=== PATIENT | male | born 1990 | race Two or more races ===

== ENCOUNTER 2018-03-23 23:43 | Emergency (ER) | payer SELFPAY ==
[~2018-03-23] VITALS: Ht 180.3 cm; Wt 81.8 kg
[2018-03-24] MEDS ORDERED: LIDOCAINE HCL 1% 10 ML VIAL INJ ONE (00:15)
[2018-03-24 01:10] VITALS: BP 119/79
[2018-03-24] MEDS ORDERED: PERTUSS(ACELL),DIPH,TET VAC/PF 0.5 ML VIAL IM ONE (01:15)
== END 2018-03-24 01:20 | disposition home or self-care (01) ==
LOC: EMS 23:44
DX: S61.211A Laceration without foreign body of left index finger without damage to nail, initial encounter (principal); F17.210 Nicotine dependence, cigarettes, uncomplicated; W45.8XXA Other foreign body or object entering through skin, initial encounter; Y93.89 Activity, other specified; Y92.89 Other specified places as the place of occurrence of the external cause; Y99.8 Other external cause status
CPT/HCPCS: 12001; 90471; 90715; 99283; J3490